=== PATIENT | male | born 1995 | race Two or more races ===

== ENCOUNTER 2022-01-02 15:15 | Emergency (ER) | payer OTHER ==
--- NOTE | 2022-01-02 17:14 | RAD REPORT ---
EXAM DESCRIPTION: Mireille Guaman (2 Views)01/02/2022 4:42 pm CLINICAL HISTORY: Shortness of breath COMPARISON: None FINDINGS: The lungs appear clear of acute infiltrate. The heart is normal size IMPRESSION: No acute abnormalities displayed
--- NOTE | 2022-01-02 17:50 | EDPHYS ---
Physician Documentation [facility] Name: Seven Mckoy Age: 26 yrs Sex: Male : 1995 Arrival Date: 01/02/2022 Time: 15:18 Bed 6 Private MD: ED Physician Tad Theodore HPI: 01/02 17:29 This 26 yrs old Male presents to ER via Ambulatory with complaints of Shortness kb Of Breath, Breathing Difficulty. 17:29 The patient has shortness of breath at rest. Onset: The symptoms/episode began/occurred kb 2 week(s) ago. Duration: The symptoms are intermittent. The patient's shortness of breath is aggravated by nothing, is alleviated by nothing. Associated signs and symptoms: The patient has no apparent associated signs or symptoms. Severity of symptoms: At their worst the symptoms were mild moderate in the emergency department the symptoms have improved. The patient has not experienced similar symptoms in the past. The patient has not recently seen a physician. Pt reports intermittent episodes of shortness of breath for the last 2 weeks. States it randomly feels like he has to take a deep breath. Historical: - Allergies: 15:22 No Known Allergies; hb - Immunization history:: Adult Immunizations up to date. - Social history:: Smoking status: Patient/guardian denies using. ROS: 17:29 Constitutional: Negative for fever, chills, and weight loss. kb 17:29 Respiratory: Positive for shortness of breath. 17:29 All other systems are negative. Exam: 17:29 Constitutional: This is a well developed, well nourished patient who is awake, alert, kb and in no acute distress. Head/Face: Normocephalic, atraumatic. ENT: Moist Mucous membranes Cardiovascular: Regular rate and rhythm with a normal S1 and S2. No gallops, murmurs, or rubs. No pulse deficits. Respiratory: Respirations even and unlabored. No increased work of breathing. Talking in full sentences Abdomen/GI: Soft, non-tender. No distention Skin: Warm, dry with normal turgor. Normal color. MS/ Extremity: Pulses equal, no cyanosis. Neurovascular intact. Full, normal range of motion. Neuro: Awake and alert, GCS 15, oriented to person, place, time, and situation. Moves all extremities. Normal gait. Psych: Awake, alert, with orientation to person, place and time. Behavior, mood, and affect are within normal limits. 01/03 01:13 ECG was reviewed by the Attending Physician. kb Vital Signs: 01/02 15:21 Pulse 99; Resp 18; Temp 98.2; Pulse Ox 100% on R/A; Weight 74.84 kg; Height 5 ft. 9 in. hb (175.26 cm); Pain 0/10; 15:23 BP 138 / 84; Pulse 69; Resp 16; Pulse Ox 100% on R/A; Pain 0/10; mb9 16:30 BP 123 / 80; Pulse 52; Resp 16; Pulse Ox 100% on R/A; Pain 0/10; mb9 17:46 BP 138 / 69; Pulse 61; Resp 16; Pulse Ox 100% on R/A; mb9 15:21 Body Mass Index 24.37 (74.84 kg, 175.26 cm) hb MDM: 15:23 Patient medically screened. kb 17:28 Data reviewed: vital signs, nurses notes. Data interpreted: Pulse oximetry: on room air kb is 100 %. Interpretation: normal. Counseling: I had a detailed discussion with the patient and/or guardian regarding: the historical points, exam findings, and any diagnostic results supporting the discharge/admit diagnosis, radiology results, the need for outpatient follow up, a family practitioner, to return to the emergency department if symptoms worsen or persist or if there are any questions or concerns that arise at home. ED course: PERC criteria = 0. 01/02 15:23 Order name: Chest Pa And Lat (2 Views) XRAY; Complete Time: 17:19 kb 01/02 16:12 Order name: EKG; Complete Time: 16:13 kb 01/02 16:12 Order name: EKG - Nurse/Tech; Complete Time: 16:31 kb EC/16 01:13 Rate is 58 beats/min. Rhythm is regular. QRS [place] is Normal. HI interval is normal at kb 160 msec. QRS interval is normal at 96 msec. QT interval is normal at 392 msec. Administered Medications: No medications were administered Disposition: 01/02 18:56 Co-signature as Attending Physician, Tad Theodore MD I agree with the assessment and kdr plan of care. Disposition Summary: 01/02/22 17:50 Discharge Ordered Location: Home kb Condition: Stable kb Diagnosis - Dyspnea kb Followup: kb - With: Emergency Department - When: As needed - Reason: Worsening of condition Followup: kb - With: Private Physician - When: 2 - 3 days - Reason: Recheck today's complaints, Continuance of care, Re-evaluation by your physician Discharge Instructions: - Discharge Summary Sheet kb - Shortness of Breath, Adult, [id number] kb Forms: - Medication Reconciliation Form kb - Thank You Letter kb - Antibiotic Education kb - Prescription Opioid Use kb Signatures: Dispatcher [employer] EDMS Leila Crisostomo, SKI MOLDER-C SKI MOLDER-Litb Tad Theodore MD MD [facility] Vickie Dorado RN RN Nicole Villa RN RN mb9 Corrections: (The following items were deleted from the chart) 17:50 17:29 Pt reports intermittent episodes of shortness of breath for the last 2 weeks. . kbkb
--- NOTE | 2022-01-02 17:50 | ER ---
Nurse's Notes [facility] Name: Seven Mckoy Age: 26 yrs Sex: Male : 1995 Arrival Date: 01/02/2022 Time: 15:18 Bed 6 Private MD: Diagnosis: Dyspnea Presentation: 01/02 15:21 Chief complaint: Intermittent SOB and cough x 2 weeks. Coronavirus screen: Client hb presents with at least one sign or symptom that may indicate coronavirus-19. Provider contacted for isolation considerations. Ebola Screen: No symptoms or risks identified at this time. Initial Sepsis Screen: Does the patient meet any 2 criteria? No. Patient's initial sepsis screen is negative. Does the patient have a suspected source of infection? No. Patient's initial sepsis screen is negative. Risk Assessment: Do you want to hurt yourself or someone else? Patient reports no desire to harm self or others. Onset of symptoms was December 19, 2021. 15:21 Method Of Arrival: Ambulatory hb 15:21 Acuity: MEL 4 hb Triage Assessment: 15:30 General: Appears in no apparent distress. Respiratory: Onset: The symptoms/episode mb9 began/occurred 2 weeks, the patient has mild shortness of breath. Historical: - Allergies: 15:22 No Known Allergies; hb - Immunization history:: Adult Immunizations up to date. - Social history:: Smoking status: Patient/guardian denies using. Screenin:30 Abuse screen: Denies threats or abuse. Nutritional screening: No deficits noted. mb9 Tuberculosis screening: No symptoms or risk factors identified. Fall Risk None identified. Assessment: 15:23 General: Appears in no apparent distress. comfortable, Behavior is calm, cooperative, mb9 appropriate for age. Pain: Denies pain. Neuro: Level of Consciousness is awake, alert, obeys commands, Oriented to person, place, time, situation, Appropriate for age. Cardiovascular: Heart tones S1 S2 present Rhythm is regular. Respiratory: Reports cough that is non-productive, since 2 weeks ago Airway is patent Respiratory effort is even, unlabored, Respiratory pattern is regular, symmetrical, Breath sounds are clear bilaterally. GI: Abdomen is flat, Bowel sounds present X 4 quads. : No signs and/or symptoms were reported regarding the genitourinary system. Derm: Skin is pink, warm \T\ dry. Musculoskeletal: Range of motion: intact in all extremities. 16:30 General: Appears in no apparent distress. comfortable, Behavior is appropriate for age. mb9 Pain: Denies pain. Neuro: Level of Consciousness is awake, alert, obeys commands, Oriented to person, place, time, situation, Appropriate for age. Cardiovascular: Heart tones S1 S2 present Rhythm is sinus bradycardia. Respiratory: Airway is patent Respiratory effort is even, unlabored, Respiratory pattern is regular, symmetrical, Breath sounds are clear bilaterally. Derm: Skin is pink, warm \T\ dry. 17:47 General: Appears in no apparent distress. comfortable, Behavior is calm, cooperative, mb9 appropriate for age. Neuro: Level of Consciousness is awake, alert, obeys commands, Oriented to person, place, time, situation, Appropriate for age. Respiratory: Reports cough that is non-productive, Airway is patent Respiratory effort is even, unlabored, Respiratory pattern is regular, symmetrical, Breath sounds are clear bilaterally. Derm: Skin is pink, warm \T\ dry. Vital Signs: 15:21 Pulse 99; Resp 18; Temp 98.2; Pulse Ox 100% on R/A; Weight 74.84 kg; Height 5 ft. 9 in. hb (175.26 cm); Pain 0/10; 15:23 BP 138 / 84; Pulse 69; Resp 16; Pulse Ox 100% on R/A; Pain 0/10; mb9 16:30 BP 123 / 80; Pulse 52; Resp 16; Pulse Ox 100% on R/A; Pain 0/10; mb9 17:46 BP 138 / 69; Pulse 61; Resp 16; Pulse Ox 100% on R/A; mb9 15:21 Body Mass Index 24.37 (74.84 kg, 175.26 cm) hb ED Course: 15:18 Patient arrived in ED. am2 15:20 [facility] Crisostomo [facility]C [facility] kb 15:20 Tad Theodore MD is Attending Physician. kb 15:22 Triage completed. hb 15:23 Arm band placed on. hb 15:30 Patient has correct armband on for positive identification. Placed in gown. Bed in low mb9 position. Call light in reach. Side rails up X 1. 15:33 Nicole Villa RN is Primary Nurse. mb9 16:45 Chest Pa And Lat (2 Views) XRAY In Process Unspecified. EDMS 17:00 No provider procedures requiring assistance completed. mb9 17:00 Patient did not have IV access during this emergency room visit. mb9 Administered Medications: No medications were administered Medication: 15:30 VIS not applicable for this client. mb9 Outcome: 17:50 Discharge ordered by MD. brown 17:51 Discharged to home ambulatory. mb9 17:51 Condition: stable 17:51 Discharge instructions given to patient, Instructed on discharge instructions, follow up and referral plans. Demonstrated understanding of instructions, follow-up care. 17:56 Patient left the ED. mb9 Signatures: Dispatcher [employer] EDMS Leila Crisostomo, RUBBER CHEMIST-C RUBBER CHEMIST-Ckb Vickie Dorado RN RN Kristy Rolle Mary RN RN mb9 Corrections: (The following items were deleted from the chart) 17:11 15:23 Respiratory: Airway is patent Respiratory effort is even, unlabored, Respiratory mb9 pattern is regular, symmetrical, Breath sounds are clear bilaterally. mb9 17:14 15:23 Cardiovascular: Heart tones S1 S2 present Rhythm is sinus bradycardia mb9 mb9 17:14 16:30 Cardiovascular: Heart tones S1 S2 present Rhythm is regular mb9 mb9
[2022-01-02 18:00] VITALS: TEMP 98.2; O2SAT 100
[2022-01-02 18:05] VITALS: BP 138/69
--- NOTE | 2022-01-03 09:27 | EKG ---
Test Date: 2022-01-02 Test Time: 16:26:01 Child Care Nurse: MB MEASUREMENT RESULTS: Intervals: Rate: 58 SD: 160 QRSD: 96 QT: 400 QTc: 392 [place]: P: 75 SD: 160 QRS: 84 T: 73 INTERPRETIVE STATEMENTS: Sinus bradycardia with marked sinus arrhythmia Otherwise normal ECG No previous ECG available for comparison Electronically Signed On 01-03-22 09:26:46 CDT by Magnus Andres
== END 2022-01-02 17:56 | disposition home or self-care (01) ==
LOC: ER 15:15
DX: R06.00 Dyspnea, unspecified (principal)
CPT/HCPCS: 71046; 93005; 99284